=== PATIENT | female | born 1995 | race Caucasian/White ===

== ENCOUNTER 2021-03-12 12:12 | Emergency (ER) | payer BC, SELFPAY ==
--- NOTE | 2021-03-12 12:21 | ED.FEMALEGU ---
HPI - Female Genitourinary General Chief complaint: Urogenital-Female Stated complaint: UTI Time Seen by Provider: 03/12/21 12:38 Source: patient and RN notes reviewed Mode of arrival: ambulatory Limitations: no limitations History of Present Illness HPI Narrative: 25-year-old female presents with concern for urinary tract infection. Reports frequent urinary tract infections. She does not recall when her last one was or what antibiotic she was put on. She reports 2-day history of urinary frequency, burning with urination, urethral pain. She denies any vaginal discharge, abnormal vaginal bleeding. Denies nausea, vomiting, abdominal pain, flank pain. MD elicited complaint: UTI Related Data Allergies Allergy/AdvReac Type Severity Reaction Status Date / Time No Known Allergies Allergy Verified 03/12/21 12:29 Review of Systems Review of Systems: CONSTITUTIONAL: Denies malaise, chills, sweats, or fever. CARDIOVASCULAR: Denies chest pain, palpitations, or edema. RESPIRATORY: Denies cough or dyspnea. GASTROINTESTINAL: Denies abdominal pain, nausea, vomiting, diarrhea GENITOURINARY: Reports dysuria, frequency, urgency, urethral pain. Denies flank pain or hematuria. SKIN: Denies rash or itching. MUSCULOSKELETAL: Denies back pain or myalgia. All systems reviewed & are unremarkable except as noted in HPI and below PMFSH Comments At time of signature, agree with nursing past medical, surgical, social and family history. There is no relevant family history pertinent to the presenting complaint Exam Narrative: GENERAL: Well-appearing, well-nourished, and in no acute distress. HEAD: Normocephalic. EYES: PERRLA, conjunctivae clear. NECK: Supple. No lymphadenopathy CHEST: Clear to auscultation. No respiratory distress. HEART: Regular rate and rhythm. ABDOMEN: Soft, nontender upon palpation, nondistended, normal active bowel sounds, no palpable or pulsatile masses, no guarding. No CVA tenderness SKIN: Warm, dry, no rash. NEURO: Alert and oriented x3. PSYCH: Normal mood and affect Course Course Emergency Course: Patient advised to find a primary care doctor and make an appointment, to follow-up on frequent infections. Patient reports she sees urgent care providers for her urinary tract infections. Patient is aware of diagnosis, understands and agrees to treatment plan. Anticipatory guidance given. Patient agrees to follow-up as directed and is aware of reasons to seek care at the emergency department. Portions of this record may have been created with voice recognition software Vital Signs Vital signs: Reviewed. Patient has been instructed to follow up with her primary care provider within the next week regarding her elevated blood pressure today. MDM - Female Genitourinary MDM Narrative Medical decision making narrative: Exam findings and UA show no acute concerns or changes; patient is non-toxic appearing and is in no distress. Patient is appropriate for outpatient treatment and follow-up. Differential Diagnosis Differential diagnosis: Likely urinary tract infection and cystitis Critical Care Time Critical Care Time Critical Care Time: No Discharge Plan Discharge Clinical Impression: Symptoms of urinary tract infection Patient Disposition: Home, Self-Care Condition: Stable Instructions: Antibiotic Form, Urinary Tract Infection in Women (ED) Additional Instructions: We will send a urine culture to the lab; if the culture identifies an organism that the prescribed antibiotic will not treat, you will receive a phone call from an urgent care staff member and an appropriate antibiotic will be prescribed. -Your symptoms should begin to improve within a day of starting antibiotics. But you should finish all the antibiotic pills you get. Otherwise your infection might come back. -Also recommend: increase water intake. Tylenol/ibuprofen as needed for pain or fever -Follow-up with your primary care provider for urine recheck
[2021-03-12 12:24] VITALS: BP 153/96; PULSE 91; RESP 16; TEMP 36.7; O2SAT 100
== END 2021-03-12 12:53 | disposition home or self-care (01) ==
PROVIDERS: Emergency Provider Nurse Practitioner
DX: R35.0 Frequency of micturition (principal); R30.0 Dysuria
CPT/HCPCS: 81003; 87086; 99213; G0463

== ENCOUNTER 2021-12-15 09:41 | Emergency (ER) | payer BC, SELFPAY ==
[2021-12-15 09:58] VITALS: BP 152/95; PULSE 102; RESP 16; TEMP 37.3; O2SAT 98
--- NOTE | 2021-12-15 10:13 | ED.FEMALEGU ---
HPI - Female Genitourinary General Chief complaint: Urogenital-Female Stated complaint: possible uti, std test Time Seen by Provider: 12/15/21 09:46 Source: patient Mode of arrival: ambulatory Limitations: no limitations History of Present Illness HPI Narrative: 26-year-old female presents to urgent care with complaints of pain with urination and vaginal pain for the past week. Patient reports that she has had chlamydia twice in the past. Patient reports that she currently is in an open relationship with her boyfriend. Patient reports that she would like STD testing completed as she gets this done regularly. Patient denies abnormal vaginal discharge, vaginal itching or vaginal odor. Patient reports that she does not want to be treated for STDs today but just wants testing completed. Patient is requesting a vaginal exam today. Patient reports that she has had a history of yeast infections. MD elicited complaint: dysuria and pelvic pain Pertinent past history: STI/STD Onset (ago): week(s) (1) Vaginal discharge: none Vaginal bleeding: none Urinary symptoms: Dysuria Treatment prior to arrival: none Sexual activity: Yes Patient : No Related Data Home Medications Medication Instructions Recorded Confirmed hydroxyzine HCl 25 mg tablet 25 mg PO PRN PRN Anxiety 12/15/21 12/15/21 norethindrone 1 mg-ethinyl 1 tablet PO DAILY 12/15/21 12/15/21 estradiol 20 mcg (21)-iron 75 mg (7) tablet (04/11 (28)) sertraline 100 mg tablet 100 mg PO DAILY 12/15/21 12/15/21 Allergies Allergy/AdvReac Type Severity Reaction Status Date / Time No Known Allergies Allergy Verified 12/15/21 09:53 Review of Systems Constitutional: Constitutional: Denies chills and Denies fatigue ENT: Denies vertigo and Denies dizziness Respiratory: Respiratory: Denies cough, Denies dyspnea and Denies wheezing Gastrointestinal: Gastrointestinal: Denies diarrhea, Denies nausea and Denies vomiting Genitourinary: Genitourinary: Reports dysuria and Reports pelvic pain Integumentary/Breasts: Skin/Breast: Denies rash [facility] Past Medical History Medical History (Updated 12/15/21 @ 10:27 by Jeannette Baker, SONIYA) Cholecystectomy planned Family History Family History (Updated 12/15/21 @ 10:17 by Jeannette Baker APRN) Father Heart disease Social History Social History (Updated 12/15/21 @ 10:17 by Jeannette Baker APRN) Substance use: current Substance use type: marijuana Gender identity (if verbalized by the patient): Female Sexual Orientation (if Verbalized by the Patient): Straight or Heterosexual Comments At time of signature, I agree with nursing past medical, surgical, social and family history. There is no relevant family history pertinent to the presenting complaint. Exam Const: General: healthy appearing and no acute distress Nutritional Appearance: well nourished Orientation/consciousness: patient oriented x3 Limitations: no limitations Neck: Neck: normal visual inspection Resp: Effort & Inspection: normal respiratory effort and not labored Auscultation: clear to auscultation bilaterally and no crackles Cardio: Rate: regular rate Rhythm: regular rhythm Heart sounds: no murmurs GI: Inspection: non-distended GI Palp: Yes Soft to palpation, No Tenderness to palpation present (GI), No Guarding due to palpation present (GI), No Rigid due to palpation and No Hernia present Auscultation: normal bowel sounds : General: Yes bladder normal to palpation External Female Exam: normal external appearance Speculum Exam - Vagina: abnormal vaginal discharge white Speculum Exam - Cervix: normal appearance of the cervix Other: tavon -- echo technician is solution professional for examination; swab was obtained during exam. No ulcerations, lesions or odor noted Back/Spine/Pelvis: Back: no CVA tenderness Skin: General skin exam: normal color Rashes: no rashes Wounds: no wounds Neuro: General: patient oriented x3 Cranial nerve
== END 2021-12-15 10:32 | disposition home or self-care (01) ==
PROVIDERS: Emergency Provider Nurse Practitioner Family; PCP Family Medicine
DX: Z72.51 High risk heterosexual behavior (principal); F12.90 Cannabis use, unspecified, uncomplicated
CPT/HCPCS: 81003; 87070; 87077; 87086; 87088; 87491; 87591; 87661; 99214; G0463